=== PATIENT | female | born 1980 | race Caucasian/White ===

== ENCOUNTER 2018-07-17 21:01 | Emergency (ER) | payer SELFPAY ==
[~2018-07-17] VITALS: Ht 167.6 cm; Wt 65.8 kg
[2018-07-17 21:17] VITALS: BP 135/74
[2018-07-17] MEDS ORDERED: IBUPROFEN 800 MG TAB PO ONE (22:45)
== END 2018-07-18 00:52 | disposition left against medical advice (07) ==
LOC: EDBD 21:01 → ER 21:06
DX: S01.81XA Laceration without foreign body of other part of head, initial encounter (principal); M54.2 Cervicalgia; Z53.21 Procedure and treatment not carried out due to patient leaving prior to being seen by health care provider; V43.52XA Car driver injured in collision with other type car in traffic accident, initial encounter; Y93.89 Activity, other specified; Y92.410 Unspecified street and highway as the place of occurrence of the external cause; Y99.8 Other external cause status
CPT/HCPCS: 70450; 72125